=== PATIENT | male | born 1990 | race Caucasian/White ===

== ENCOUNTER 2018-08-04 11:26 | Emergency (ER) | payer SELFPAY ==
[2018-08-04] MEDS ORDERED: IBUPROFEN 200 MG TAB PO ONE (14:07)
--- NOTE | 2018-08-04 14:15 | ER ---
Nurse's Notes [facility] Name: Jesus Stuart Age: 27 yrs Sex: Male : 1990 Arrival Date: 08/04/2018 Time: 11:45 Bed 11 Private MD: None, None Diagnosis: Pain in right thigh Presentation: 08/04 12:18 Presenting complaint: Patient states: " I woke up this morning w/ sharp pain in my (R) ph groin. It seems worse when I cough.". Transition of care: patient was not received from another setting of care. Onset of symptoms was August 04, 2018. Risk Assessment: Do you want to hurt yourself or someone else? Patient reports no desire to harm self or others. Initial Sepsis Screen: Does the patient meet any 2 criteria? No. Patient's initial sepsis screen is negative. Does the patient have a suspected source of infection? No. Patient's initial sepsis screen is negative. Care prior to arrival: None. 12:18 Method Of Arrival: Ambulatory ph 12:18 Acuity: ROXANA 3 ph Historical: - Allergies: 12:20 Zofran; ph 12:20 Sulfa (Sulfonamide Antibiotics); ph - PMHx: 12:20 ASD; ph - PSHx: 12:20 Cholecystectomy; Appendectomy; Tonsillectomy; ph - Immunization history:: Adult Immunizations unknown. - Social history:: Smoking status: Patient uses tobacco products, vapes. - Family history:: not pertinent. - Ebola Screening: : Patient negative for fever greater than or equal to 101.5 degrees Fahrenheit, and additional compatible Ebola Virus Disease symptoms Patient denies exposure to infectious person Patient denies travel to an Ebola-affected area in the 21 days before illness onset No symptoms or risks identified at this time. Screenin:49 Abuse screen: Denies threats or abuse. Denies injuries from another. Nutritional iw screening: No deficits noted. Tuberculosis screening: No symptoms or risk factors identified. Fall Risk None identified. Assessment: 13:48 General: Appears in no apparent distress. Behavior is calm, cooperative. Pain: iw Complains of pain in right femoral area. 13:49 Neuro: Level of Consciousness is awake, alert, obeys commands, Oriented to person, iw place, time, situation. GI: Reports. : Reports pain in right groin Denies burning with urination. Derm: Skin is intact, is healthy with good turgor. Musculoskeletal: Range of motion: intact in all extremities. Vital Signs: 12:19 BP 146 / 92; Pulse 84; Resp 18; Temp 98.0; Pulse Ox 98% on R/A; Weight 129.27 kg; ph Height 6 ft. 2 in. (187.96 cm); Pain 7/10; 12:19 Body Mass Index 36.59 (129.27 kg, 187.96 cm) ph ED Course: 11:45 Patient arrived in ED. sb2 11:45 None, None is Private Physician. sb2 12:19 Triage completed. ph 12:21 Arm band placed on Patient placed in waiting room, Patient notified of wait time. ph 13:36 Milton Last MD is Attending Physician. jann 13:48 Geno Le, RN is Primary Nurse. iw 14:00 Patient has correct armband on for positive identification. iw 14:15 No provider procedures requiring assistance completed. Patient did not have IV access iw during this emergency room visit. Administered Medications: 14:04 Drug: Motrin 600 mg Route: PO; iw 14:15 Follow up: Response: No adverse reaction iw Outcome: 14:14 Discharge ordered by . [facility] 14:15 Discharged to iw 14:18 Condition: good iw 14:18 Discharge instructions given to patient, Instructed on discharge instructions, follow up and referral plans. medication usage, Demonstrated understanding of instructions, follow-up care, medications, Prescriptions given X 2. 14:18 Patient left the ED. iw Signatures: Milton Last MD MD cha Williams, Irene, RN RN Cande Luo RN RN Eliane Montgomery sb2
--- NOTE | 2018-08-04 14:15 | EDPHYS ---
Physician Documentation [facility] Name: Jesus Stuart Age: 27 yrs Sex: Male : 1990 Arrival Date: 08/04/2018 Time: 11:45 Bed 11 Private MD: None, None ED Physician Milton Last HPI: 08/04 14:10 This 27 yrs old Male presents to ER via Ambulatory with complaints of Groin jann Pain. 14:10 The patient presents with decreased range of motion, pain. The complaints affect the jann right inner thigh. Context: The problem was sustained at an unknown site. Onset: The symptoms/episode began/occurred 3 day(s) ago. Modifying factors: The symptoms are alleviated by remaining still, the symptoms are aggravated by movement. Associated signs and symptoms: The patient has no apparent associated signs or symptoms. Severity of symptoms: At their worst the symptoms were mild, moderate, in the emergency department the symptoms have improved, mildly. The patient has not experienced similar symptoms in the past. Historical: - Allergies: 12:20 Zofran; ph 12:20 Sulfa (Sulfonamide Antibiotics); ph - PMHx: 12:20 ASD; ph - PSHx: 12:20 Cholecystectomy; Appendectomy; Tonsillectomy; ph - Immunization history:: Adult Immunizations unknown. - Social history:: Smoking status: Patient uses tobacco products, vapes. - Family history:: not pertinent. - Ebola Screening: : Patient negative for fever greater than or equal to 101.5 degrees Fahrenheit, and additional compatible Ebola Virus Disease symptoms Patient denies exposure to infectious person Patient denies travel to an Ebola-affected area in the 21 days before illness onset No symptoms or risks identified at this time. ROS: 14:10 Constitutional: Negative for fever, chills, and weight loss, Eyes: Negative for injury, jann pain, redness, and discharge, ENT: Negative for injury, pain, and discharge, Neck: Negative for injury, pain, and swelling, Cardiovascular: Negative for chest pain, palpitations, and edema, Respiratory: Negative for shortness of breath, cough, wheezing, and pleuritic chest pain, Abdomen/GI: Negative for abdominal pain, nausea, vomiting, diarrhea, and constipation, Back: Negative for injury and pain, : Negative for injury, bleeding, discharge, and swelling, Skin: Negative for injury, rash, and discoloration, Neuro: Negative for headache, weakness, numbness, tingling, and seizure, Psych: Negative for depression, anxiety, suicide ideation, homicidal ideation, and hallucinations, Allergy/Immunology: Negative for hives, rash, and allergies, Endocrine: Negative for neck swelling, polydipsia, polyuria, polyphagia, and marked weight changes, Hematologic/Lymphatic: Negative for swollen nodes, abnormal bleeding, and unusual bruising. 14:10 MS/extremity: Positive for pain, tenderness, of the right femoral area. Exam: 14:10 Constitutional: This is a well developed, well nourished patient who is awake, alert, jann and in no acute distress. Head/Face: Normocephalic, atraumatic. Eyes: Pupils equal round and reactive to light, extra-ocular motions intact. Lids and lashes normal. Conjunctiva and sclera are non-icteric and not injected. Cornea within normal limits. Periorbital areas with no swelling, redness, or edema. ENT: Nares patent. No nasal discharge, no septal abnormalities noted. Tympanic membranes are normal and external auditory canals are clear. Oropharynx with no redness, swelling, or masses, exudates, or evidence of obstruction, uvula midline. Mucous membranes moist. Neck: Trachea midline, no thyromegaly or masses palpated, and no cervical lymphadenopathy. Supple, full range of motion without nuchal rigidity, or vertebral point tenderness. No Meningismus. Chest/axilla: Normal chest wall appearance and motion. Nontender with no deformity. No lesions are appreciated. Cardiovascular: Regular rate and rhythm with a normal S1 and S2. No gallops, murmurs, or rubs. Normal PMI, no JVD. No pulse deficits. Respiratory: Lungs have equal breath sounds bilaterally, clear to auscultation and percussion. No rales, rhonchi or wheezes noted. No increased work of breathing, no retractions or nasal flaring. Abdomen/GI: Soft, non-tender, with normal bowel sounds. No distension or tympany. No guarding or rebound. No evidence of tenderness throughout. Back: No spinal tenderness. No costovertebral tenderness. Full range of motion. Skin: Warm, dry with normal turgor. Normal color with no rashes, no lesions, and no evidence of cellulitis. Neuro: Awake and alert, GCS 15, oriented to person, place, time, and situation. Cranial nerves II-XII grossly intact. Motor strength 5/5 in all extremities. Sensory grossly intact. Cerebellar exam normal. Normal gait. Psych: Awake, alert, with orientation to person, place and time. Behavior, mood, and affect are within normal limits. 14:10 Musculoskeletal/extremity: Extremities: grossly normal except: noted in the right femoral area: decreased ROM, pain, ROM: full active range of motion, full passive range of motion, Circulation is intact in all extremities. Sensation intact. Compartment Syndrome exam of affected extremity: is normal. Weight bearing: able to fully bear weight, without difficulty, DVT Exam: no swelling, no tenderness, negative Homans' sign noted on exam, no appreciated bluish discoloration, no erythema, pain. Vital Signs: 12:19 BP 146 / 92; Pulse 84; Resp 18; Temp 98.0; Pulse Ox 98% on R/A; Weight 129.27 kg; ph Height 6 ft. 2 in. (187.96 cm); Pain 7/10; 12:19 Body Mass Index 36.59 (129.27 kg, 187.96 cm) ph MDM: 13:37 Patient medically screened. [facility] 14:15 Data reviewed: vital signs, nurses notes, lab test result(s). [facility] 08/04 14:08 Order name: Urine Dipstick--Ancillary (enter results) 08/04 14:00 Order name: Urine Dipstick-Ancillary (obtain specimen); Complete Time: 14:01 [facility] Administered Medications: 14:04 Drug: Motrin 600 mg Route: PO; 14:15 Follow up: Response: No adverse reaction Disposition: 08/04/18 14:14 Discharged to Home. Impression: Pain in right thigh. - Condition is Stable. - Discharge Instructions: Musculoskeletal Pain, Pain Without a Known Cause. - Prescriptions for Ibuprofen 600 mg Oral Tablet - take 1 tablet by ORAL route every 6 hours As needed take with food; 20 tablet. Tylenol- Codeine #3 300-30 mg Oral Tablet - take 2 tablet by ORAL route every 6 hours As needed; 30 tablet. - Medication Reconciliation Form, Thank You Letter, Antibiotic Education, Prescription Opioid Use form. - Follow up: Private Physician; When: 2 - 3 days; Reason: Recheck today's complaints, Continuance of care, Re-evaluation by your physician. - Problem is new. - Symptoms have improved. Signatures: Dispatcher [employer] EDMilton Chisholm MD MD cha Williams, Irene, RN RN iw Cande Luo RN RN ph Corrections: (The following items were deleted from the chart) 14:18 14:14 08/04/2018 14:14 Discharged to Home. Impression: Pain in right thigh. Condition iw is Stable. Forms are Medication Reconciliation Form, Thank You Letter, Antibiotic Education, Prescription Opioid Use. Follow up: Private Physician; When: 2 - 3 days; Reason: Recheck today's complaints, Continuance of care, Re-evaluation by your physician. Problem is new. Symptoms have improved. jann
[2018-08-04 14:54] VITALS: BP 146/92; TEMP 98; O2SAT 98
[2018-08-04 17:29] LABS: Urine Blood NEGATIVE (NEG); Urine Glucose NEGATIVE (NEG); Urine Protein NEGATIVE (NEG); Urine pH 6.5 (5.0-7.0)
== END 2018-08-04 14:18 | disposition home or self-care (01) ==
LOC: ER 11:26
DX: M79.651 Pain in right thigh (principal); Z88.2 Allergy status to sulfonamides; Z88.8 Allergy status to other drugs, medicaments and biological substances
CPT/HCPCS: 81003; 99283

== ENCOUNTER 2021-03-12 03:05 | Emergency (ER) | payer SELFPAY ==
--- NOTE | 2021-03-12 03:50 | EDPHYS ---
Physician Documentation [facility] Name: Jesus Stuart Age: 30 yrs Sex: Male : 1990 Arrival Date: 03/12/2021 Time: 03:06 Bed 5 Private MD: ED Physician Yenifer Cramer HPI: 03/12 03:47 This 30 yrs old Male presents to ER via Ambulatory with complaints of Tooth ma2 Pain. 03:47 Onset: The symptoms/episode began/occurred suddenly, 2 day(s) ago. Associated signs and ma2 symptoms: Pertinent negatives: fever, nausea, redness in area. Severity of symptoms: At their worst the symptoms were moderate, in the emergency department the symptoms are unchanged. The patient has experienced similar episodes in the past. Historical: - Allergies: 03:29 Sulfa (Sulfonamide Antibiotics); bb 03:29 Zofran; bb - Home Meds: 03:29 None [Active]; bb - PMHx: 03:29 ASD; diverticulosis; bb - PSHx: 03:29 Cholecystectomy; Appendectomy; Tonsillectomy; bb - Immunization history:: Adult Immunizations up to date. - Social history:: Smoking status: Patient denies any tobacco usage or history of. Patient uses alcohol, occasionally. Patient/guardian denies using street drugs, Patient uses Patient/guardian denies using alcohol, The patient lives with spouse, . - Family history:: not pertinent. ROS: 03:47 Constitutional: Negative for fever, chills, and weight loss. ma2 03:47 All other systems are negative. Exam: 03:47 Constitutional: This is a well developed, well nourished patient who is awake, alert, ma2 and in no acute distress. Head/Face: Normocephalic, atraumatic. Eyes: Pupils equal round and reactive to light, extra-ocular motions intact. Lids and lashes normal. Conjunctiva and sclera are non-icteric and not injected. Cornea within normal limits. Periorbital areas with no swelling, redness, or edema. ENT: dental infection.. Nares patent. No nasal discharge, no septal abnormalities noted. Tympanic membranes are normal and external auditory canals are clear. Oropharynx with no redness, swelling, or masses, exudates, or evidence of obstruction, uvula midline. Mucous membranes moist. Neck: Trachea midline, no thyromegaly or masses palpated, and no cervical lymphadenopathy. Supple, full range of motion without nuchal rigidity, or vertebral point tenderness. No Meningismus. Chest/axilla: Normal chest wall appearance and motion. Nontender with no deformity. No lesions are appreciated. Cardiovascular: Regular rate and rhythm with a normal S1 and S2. No gallops, murmurs, or rubs. Normal PMI, no JVD. No pulse deficits. Respiratory: Lungs have equal breath sounds bilaterally, clear to auscultation and percussion. No rales, rhonchi or wheezes noted. No increased work of breathing, no retractions or nasal flaring. Abdomen/GI: Soft, non-tender, with normal bowel sounds. No distension or tympany. No guarding or rebound. No evidence of tenderness throughout. Vital Signs: 03:27 BP 151 / 87; Pulse 84; Resp 18 S; Temp 98.2(O); Pulse Ox 99% on R/A; Weight 113.4 kg bb (R); Height 6 ft. 2 in. (187.96 cm) (R); Pain 10/10; 03:27 Body Mass Index 32.10 (113.40 kg, 187.96 cm) bb MDM: 03:40 Patient medically screened. [facility] 03:47 Differential diagnosis: dental caries, gingivitis, gingivostomatitis. Data reviewed: [facility] vital signs, nurses notes. Counseling: I had a detailed discussion with the patient and/or guardian regarding: the historical points, exam findings, and any diagnostic results supporting the discharge/admit diagnosis, the presence of at least one elevated blood pressure reading (>120/80) during this emergency department visit, the need for outpatient follow up. Response to treatment: the patient's symptoms have markedly improved after treatment. Administered Medications: 03:59 Drug: TORadol (ketorolac) 60 mg Route: IM; Site: right gluteus; 04:14 Follow up: Response: No adverse reaction; Pain is decreased 03:59 Drug: Augmentin (Amoxicillin-Clavulanate) 875 mg Route: PO; 04:13 Follow up: Response: No adverse reaction Disposition: 03/12/21 03:48 Discharged to Home. Impression: Dental caries. - Condition is Stable. - Discharge Instructions: Dental Pain. - Prescriptions for Augmentin 875- 125 mg Oral Tablet - take 1 tablet by ORAL route every 12 hours for 10 days; 20 tablet. Diclofenac Sodium 75 mg Oral Tablet Sustained Release - take 1 tablet by ORAL route 2 times per day; 30 tablet. - Medication Reconciliation Form, Thank You Letter, Antibiotic Education, Prescription Opioid Use form. - Follow up: Private Physician; When: Tomorrow; Reason: Recheck today's complaints, Continuance of care. Signatures: Khushboo Stafford RN Marianne Driscoll RN RN Yenifer Cramer MD MD ma2 Corrections: (The following items were deleted from the chart) 04:17 03:48 03/12/2021 03:48 Discharged to Home. Impression: Dental caries. Condition is wh Stable. Forms are Medication Reconciliation Form, Thank You Letter, Antibiotic Education, Prescription Opioid Use. Follow up: Private Physician; When: Tomorrow; Reason: Recheck today's complaints, Continuance of care. ma2
--- NOTE | 2021-03-12 03:50 | ER ---
Nurse's Notes [facility] Name: Jesus Stuart Age: 30 yrs Sex: Male : 1990 Arrival Date: 03/12/2021 Time: 03:06 Bed 5 Private MD: Diagnosis: Dental caries Presentation: 03/12 03:27 Chief complaint: Patient states: he has had a toothache for a week has broken wisdom bb teeth in bilateral upper jaws. Coronavirus screen: At this time, the client does not indicate any symptoms associated with coronavirus-19. Ebola Screen: No symptoms or risks identified at this time. Initial Sepsis Screen: Does the patient meet any 2 criteria? No. Patient's initial sepsis screen is negative. Does the patient have a suspected source of infection? No. Patient's initial sepsis screen is negative. Risk Assessment: Do you want to hurt yourself or someone else? Patient reports no desire to harm self or others. Onset of symptoms was March 04, 2021. 03:27 Method Of Arrival: Ambulatory 03:27 Acuity: ROXANA 5 bb Triage Assessment: 03:29 General: Appears in no apparent distress. uncomfortable, Behavior is calm, cooperative. bb Pain: Complains of pain in bilateral upper jaws Pain currently is 10 out of 10 on a pain scale. EENT: Reports pain from broken molars in upper jaw. Neuro: Level of Consciousness is awake, alert, obeys commands, Oriented to person, place, time, situation. Cardiovascular: No deficits noted. Respiratory: Respiratory effort is even, unlabored, Respiratory pattern is regular. GI: No signs and/or symptoms were reported involving the gastrointestinal system. Derm: Skin is pink, warm \T\ dry. Musculoskeletal: Circulation, motion, and sensation intact. Historical: - Allergies: 03:29 Sulfa (Sulfonamide Antibiotics); bb 03:29 Zofran; bb - Home Meds: 03:29 None [Active]; bb - PMHx: 03:29 ASD; diverticulosis; bb - PSHx: 03:29 Cholecystectomy; Appendectomy; Tonsillectomy; bb - Immunization history:: Adult Immunizations up to date. - Social history:: Smoking status: Patient denies any tobacco usage or history of. Patient uses alcohol, occasionally. Patient/guardian denies using street drugs, Patient uses Patient/guardian denies using alcohol, The patient lives with spouse, . - Family history:: not pertinent. Screenin:30 Abuse screen: Denies threats or abuse. Nutritional screening: No deficits noted. Tuberculosis screening: No symptoms or risk factors identified. Fall Risk None identified. Assessment: 03:30 Reassessment: No changes from previously documented assessment. see triage assessment. Vital Signs: 03:27 BP 151 / 87; Pulse 84; Resp 18 S; Temp 98.2(O); Pulse Ox 99% on R/A; Weight 113.4 kg bb (R); Height 6 ft. 2 in. (187.96 cm) (R); Pain 10/10; 03:27 Body Mass Index 32.10 (113.40 kg, 187.96 cm) ED Course: 03:06 Patient arrived in ED. cl3 03:28 Triage completed. 03:28 Marianne Felipe RN is Primary Nurse. 03:29 Arm band placed on Patient placed in an exam room, on a stretcher, on pulse oximetry. 03:30 Patient has correct armband on for positive identification. Bed in low position. Call bb light in reach. Pulse ox on. NIBP on. 03:40 Yenifer Cramer MD is Attending Physician. ma2 04:16 No provider procedures requiring assistance completed. Patient did not have IV access during this emergency room visit. Administered Medications: 03:59 Drug: TORadol (ketorolac) 60 mg Route: IM; Site: right gluteus; 04:14 Follow up: Response: No adverse reaction; Pain is decreased 03:59 Drug: Augmentin (Amoxicillin-Clavulanate) 875 mg Route: PO; 04:13 Follow up: Response: No adverse reaction Outcome: 03:48 Discharge ordered by . ma2 04:17 Discharged to home ambulatory. 04:17 Condition: stable 04:17 Discharge instructions given to patient, Instructed on discharge instructions, follow up and referral plans. medication usage, POC Demonstrated understanding of instructions, follow-up care, medications, POC Prescriptions given X 2. 04:17 Patient left the ED. Signatures: Khushboo Stafford RN RN Marianne Felipe RN RN Alzahri, Mohammad, MD MD ma2 Harley, Charde cl3
[2021-03-12] MEDS ORDERED: AMOX/K CLAV 875 MG TAB ONE (04:13)
[2021-03-12] MEDS ORDERED: KETOROLAC 30 MG/ML INJ ONE (04:14)
[2021-03-12 04:49] VITALS: BP 151/87; TEMP 98.2; O2SAT 99
== END 2021-03-12 04:17 | disposition home or self-care (01) ==
LOC: ER 03:05
DX: K02.9 Dental caries, unspecified (principal); Z88.2 Allergy status to sulfonamides; Z88.8 Allergy status to other drugs, medicaments and biological substances
CPT/HCPCS: 96372; 99283

== ENCOUNTER 2021-09-23 18:49 | Emergency (ER) | payer SELFPAY ==
[2021-09-23] MEDS ORDERED: NA CHLORIDE 0.9% 1,000 ML ONE (19:43)
[2021-09-23 20:08] LABS: Absolute Lymphocytes (CBC) 2.4 K/uL (0.7-4.9); Basophils % 1.4 % (0-1.3); Hematocrit 44.1 % (39.6-49.0); Lymphocytes % 34.4 % (15.3-44.8); MPV 7.9 fL (7.6-11.3); RBC Red Blood Cell Count 5.24 M/uL (4.33-5.43)
[2021-09-23 20:11] LABS: Protime INR 1.01
--- NOTE | 2021-09-23 20:19 | RAD REPORT ---
EXAM DESCRIPTION: CT - Head Brain Wo Cont - 09/23/2021 8:11 pm CLINICAL HISTORY: AMS Headache, drowsiness COMPARISON: No comparisons TECHNIQUE: All CT scans are performed using dose optimization technique as appropriate and may inclu de automated exposure control or mA/KV adjustment according to patient size. FINDINGS: No intracranial hemorrhage, hydrocephalus or extra-axial fluid collection.No areas of brai n edema or evidence of midline shift. The paranasal sinuses and mastoids are clear. The calvarium is intact. IMPRESSION: No acute intracranial abnormality.
[2021-09-23 20:22] LABS: ALT/SGPT 39 U/L (12-78); AST/SGOT 23 U/L (15-37); Albumin 3.8 g/dL (3.4-5.0); Alkaline Phosphatase 66 U/L (45-117); BUN Blood Urea Nitrogen 22 mg/dL (7-18); Bicarbonate 33 mmol/L (21-32); Bilirubin Direct < 0.1 mg/dL (0-0.2); Bilirubin Total 0.5 mg/dL (0.2-1.0); Creatine Phosphokinase 372 U/L (39-308); Glucose Level 100 mg/dL (74-106); Potassium 3.9 mmol/L (3.5-5.1); Protein, Total 8.2 g/dL (6.4-8.2); Sodium Level 142 mmol/L (136-145)
[2021-09-23 20:39] LABS: Thyroid Stimulating Hormone 0.336 uIU/mL (0.360-3.740)
[2021-09-23] MEDS ORDERED: LORazepam 2 MG/ML VIAL ONE (20:52)
[2021-09-23 21:14] LABS: Urine Blood Trace-intact (Negative); Urine Glucose Negative (Negative); Urine Protein Negative (Negative); Urine Specific Gravity >=1.030 (1.005-1.030)
[2021-09-23 21:20] LABS: SARS-COV-2 RT PCR NEGATIVE (NEGATIVE)
[2021-09-23 21:32] LABS: Barbiturates NEGATIVE (NEGATIVE); Benzodiazepines NEGATIVE (NEGATIVE); Cocaine NEGATIVE (NEGATIVE); METHAMPHETAM POSITIVE (NEGATIVE); Methadone NEGATIVE (NEGATIVE); Opiates NEGATIVE (NEGATIVE); Phencyclidine NEGATIVE (NEGATIVE); THC Cannibis NEGATIVE (NEGATIVE)
--- NOTE | 2021-09-23 22:51 | ER ---
Nurse's Notes [facility] Name: Jesus Stuart Age: 31 yrs Sex: Male : 1990 Arrival Date: 09/23/2021 Time: 18:50 Bed 7 Private MD: Diagnosis: Psychosis;Methamphetamine abuse Presentation: 09/23 19:02 Chief complaint: Patient states: Mom believes he is having a psychotic break since ll1 . He tore apart her car and house looking for listening devices. Hearing voices, felt like someone was out to get him. No history of this per mom. Had some N/V with dehydration on . Denies SI and HI. Coronavirus screen: Vaccine status: Patient reports being unvaccinated. Client denies travel out of the [place] in the last 14 days. At this time, the client does not indicate any symptoms associated with coronavirus-19. Ebola Screen: Patient denies travel to an Ebola-affected area in the 21 days before illness onset. Initial Sepsis Screen: Does the patient meet any 2 criteria? No. Patient's initial sepsis screen is negative. Does the patient have a suspected source of infection? No. Patient's initial sepsis screen is negative. Risk Assessment: Do you want to hurt yourself or someone else? Patient reports no desire to harm self or others. Onset of symptoms was September 20, 2021. 19:02 Method Of Arrival: Ambulatory ll1 19:02 Acuity: ROXANA 2 ll1 Historical: - Allergies: 19:01 Sulfa (Sulfonamide Antibiotics); ll1 19:01 Zofran; ll1 19:01 Tylenol; ll1 19:01 Erythromycin; ll1 - PMHx: 19:01 ASD; diverticulosis; 1 - PSHx: 19:01 Appendectomy; ll1 - Immunization history:: Client reports having NOT received the Covid vaccine. - Social history:: Smoking status: Patient denies any tobacco usage or history of. Screenin:05 Abuse screen: Denies threats or abuse. Nutritional screening: No deficits noted. ll1 Tuberculosis screening: No symptoms or risk factors identified. 20:40 Fall Risk None identified. lp1 Assessment: 19:30 General: Appears in no apparent distress. Behavior is cooperative. Pain: Denies pain. lp1 Neuro: Level of Consciousness is awake, alert, obeys commands, Oriented to person, place, time, situation, Gait is steady, Speech is normal, Pupils are PERRLA, Denies blurred vision headache. Cardiovascular: Patient's skin is warm and dry. Respiratory: Respiratory effort is even, unlabored. GI: No signs and/or symptoms were reported involving the gastrointestinal system. : No signs and/or symptoms were reported regarding the genitourinary system. EENT: No signs and/or symptoms were reported regarding the EENT system. Derm: Skin is intact, Skin is dry, Skin is normal. Musculoskeletal: No deficits noted. 20:20 Reassessment: Verbal order for Ativan 1mg IV now; Provider notified of patient feeling lp1 overwhelmed with hearing voices, reports it is just mother's voice that he hears. 21:31 Reassessment: patient reports feeling like Ativan has helped minimize the voices, lp1 reports "Is there anyway I can get a little bit more to see if it helps?"; Provider notified. General: Behavior is calm, cooperative. Neuro: Level of Consciousness is awake, alert, obeys commands. 21:54 Reassessment: Patient is alert, oriented x 3, equal unlabored respirations, skin lp1 warm/dry/pink. Patient given sandwich and water at this time, mother at bedside. 22:54 Reassessment: Dr. Spann at bedside to discuss plan of care and resources given for lp1 mental health follow up; mother at bedside. Psych: 19:30 [place] Suicide Severity Screening: In the past month, have you wished you were lp1 or wished you could go to sleep and not wake up? Patient responds "No." "In the past month, have you actually had any thoughts of killing yourself?" Patient responds "no." "In your lifetime, have you ever done anything, started to do anything, or prepared to do anything to end your life?" Patient responds "no.". Subjective: Patient's mood is appropriate Delusions are denied, Hallucinations are auditory, Reports hearing mother's voice when she is not around, nonspecific statements. Objective: Patient is cooperative, using poor eye contact, Speech is normal, Affect is appropriate. Interventions: Searched person for dangerous items. Mother remains at bedside for patient comfort, reports calming to have mother at bedside. Safety Checks: patient searched Visitors are present. Mother at bedside. Patient uses marijuana weekly Patient uses methamphetamines Last use was 1 months ago. 22:55 Commitment: Patient agrees to follow up as outpatient. lp1 Vital Signs: 19:02 BP 137 / 80; Pulse 84; Resp 18; Temp 98.2; Pulse Ox 98% ; Weight 113.4 kg; Height 6 ft. ll1 2 in. (187.96 cm); 20:31 BP 118 / 60; Pulse 81; Resp 16; Pulse Ox 98% on R/A; lp1 21:54 BP 133 / 81; Pulse 86; Resp 18; Pulse Ox 100% on R/A; Pain 0/10; lp1 22:54 BP 103 / 63; Pulse 84; Resp 16; Pulse Ox 100% on R/A; lp1 19:02 Body Mass Index 32.10 (113.40 kg, 187.96 cm) ll1 ED Course: 18:50 Patient arrived in ED. ds1 19:01 Tin Spann MD is Attending Physician. 7 19:01 Arm band placed on Patient placed in an exam room, on a stretcher. ll1 19:05 Triage completed. 1 19:05 Patient has correct armband on for positive identification. Bed in low position. Call [facility] light in reach. Side rails up X 1. Pulse ox on. NIBP on. 19:18 Alexandra Bolanos, KEVIN is Primary Nurse. lp1 19:45 Missed attempt(s): 20 gauge in right antecubital area. Inserted saline lock: 20 gauge lp1 in left antecubital area, using aseptic technique. Blood collected. 20:11 CT Head Brain wo Cont In Process Unspecified. EDMS 22:49 John Sanchez MD is Referral Physician. [facility] 22:55 No provider procedures requiring assistance completed. IV discontinued, No lp1 redness/swelling at site. Pressure dressing applied. Administered Medications: 19:49 Drug: NS 0.9% 1000 ml Route: IV; Rate: 1000 ml; Site: left antecubital; lp1 21:00 Follow up: IV Status: Completed infusion; IV Intake: 1000ml lp1 20:31 Drug: Ativan (LORazepam) 1 mg {Note: Verbal order per Dr. Spann.} Route: IVP; Site: lp1 left antecubital; 21:20 Follow up: Response: No adverse reaction; No change in condition lp1 Intake: 21:00 IV: 1000ml; Total: 1000ml. lp1 Outcome: 22:50 Discharge ordered by . satinder 22:55 Discharged to home ambulatory, with family. lp1 22:55 Condition: good 22:55 Discharge instructions given to patient, family, Instructed on discharge instructions, follow up and referral plans. Demonstrated understanding of instructions, follow-up care. 22:56 Patient left the ED. lp1 Signatures: Dispatcher [employer] EDWA SwansonEvie sauer ds1 Alexandra Bolanos RN RN lp1 Melanie Souza RN RN 1 Tin Spann MD MD mh7
--- NOTE | 2021-09-23 22:51 | EDPHYS ---
Physician Documentation [facility] Name: Jesus Stuart Age: 31 yrs Sex: Male : 1990 Arrival Date: 09/23/2021 Time: 18:50 Bed 7 Private MD: ED Physician Tin Spann HPI: 09/23 19:18 This 31 yrs old Male presents to ER via Ambulatory with complaints of Psych mh7 Problem. 19:18 The patient presents to the emergency department with psychosis, has experienced mh7 auditory hallucinations, Nonspecific commands. Onset: The symptoms/episode began/occurred 3 day(s) ago. Past psychiatric history: Prior diagnosis: no previous psychiatric diagnosis known, Psychiatric medications include: none, Primary psychiatric physician: the patient does not have a primary psychiatric physician, the patient has not had a prior suicide gesture, the patient does not have a previous inpatient psychiatric history, the patient's last psychiatric treatment was none. Associated signs and symptoms: Pertinent positives; hallucinations, nausea, vomiting, Pertinent negatives: abdominal pain, anxiety, chest pain, chills, delusions, depression, fever, headache, homicidal ideation, night sweats, palpitations, shortness of breath, substance abuse, suicide ideation, tremor. Severity of symptoms: At their worst the symptoms were moderate 2 day(s) ago, in the emergency department the symptoms are unchanged. Historical: - Allergies: 19:01 Sulfa (Sulfonamide Antibiotics); ll1 19:01 Zofran; ll1 19:01 Tylenol; ll1 19:01 Erythromycin; ll1 - PMHx: 19:01 ASD; diverticulosis; ll1 - PSHx: 19:01 Appendectomy; ll1 - Immunization history:: Client reports having NOT received the Covid vaccine. - Social history:: Smoking status: Patient denies any tobacco usage or history of. ROS: 19:18 Constitutional: Negative for fever, chills, and weight loss, Eyes: Negative for injury, mh7 pain, redness, and discharge, ENT: Negative for injury, pain, and discharge, Neck: Negative for injury, pain, and swelling, Cardiovascular: Negative for chest pain, palpitations, and edema, Respiratory: Negative for shortness of breath, cough, wheezing, and pleuritic chest pain. 19:18 Back: Negative for injury and pain, : Negative for injury, bleeding, discharge, and swelling, MS/Extremity: Negative for injury and deformity, Skin: Negative for injury, rash, and discoloration, Neuro: Negative for headache, weakness, numbness, tingling, and seizure, Allergy/Immunology: Negative for hives, rash, and allergies, Endocrine: Negative for neck swelling, polydipsia, polyuria, polyphagia, and marked weight changes, Hematologic/Lymphatic: Negative for swollen nodes, abnormal bleeding, and unusual bruising. 19:18 Abdomen/GI: Negative for abdominal pain, diarrhea, constipation, abdominal cramps, abdominal distension, anorexia, dysphagia, hematemesis, black/tarry stool, rectal pain, rectal bleeding, bowel incontinence, flatulence. 19:18 Psych: Positive for auditory hallucinations, insomnia, Negative for anxiety, depression, drug dependence, alcohol dependence, homicidal ideation, suicide gesture, suicidal ideation. Exam: 19:18 Constitutional: This is a well developed, well nourished patient who is awake, alert, mh7 and in no acute distress. Head/Face: Normocephalic, atraumatic. Eyes: Pupils equal round and reactive to light, extra-ocular motions intact. Lids and lashes normal. Conjunctiva and sclera are non-icteric and not injected. Cornea within normal limits. Periorbital areas with no swelling, redness, or edema. Neck: Trachea midline, no thyromegaly or masses palpated, and no cervical lymphadenopathy. Supple, full range of motion without nuchal rigidity, or vertebral point tenderness. No Meningismus. Chest/axilla: Normal chest wall appearance and motion. Nontender with no deformity. No lesions are appreciated. Cardiovascular: Regular rate and rhythm with a normal S1 and S2. No gallops, murmurs, or rubs. Normal PMI, no JVD. No pulse deficits. Respiratory: Lungs have equal breath sounds bilaterally, clear to auscultation and percussion. No rales, rhonchi or wheezes noted. No increased work of breathing, no retractions or nasal flaring. Abdomen/GI: Soft, non-tender, with normal bowel sounds. No distension or tympany. No guarding or rebound. No evidence of tenderness throughout. Back: No spinal tenderness. No costovertebral tenderness. Full range of motion. Skin: Warm, dry with normal turgor. Normal color with no rashes, no lesions, and no evidence of cellulitis. MS/ Extremity: Pulses equal, no cyanosis. Neurovascular intact. Full, normal range of motion. Neuro: Awake and alert, GCS 15, oriented to person, place, time, and situation. Cranial nerves II-XII grossly intact. Motor strength 5/5 in all extremities. Sensory grossly intact. Cerebellar exam normal. Normal gait. 19:18 Psych: Behavior/mood is cooperative, Affect is calm, Oriented to person, place, time, mh7 Patient has no thoughts/intents to harm self or others. Judgement / Insight is normal. Memory is normal. Delusions/hallucinations are present and described as Hears voices that are nonspecific but do not tell him to harm himself or others. Vital Signs: 19:02 BP 137 / 80; Pulse 84; Resp 18; Temp 98.2; Pulse Ox 98% ; Weight 113.4 kg; Height 6 ft. ll1 2 in. (187.96 cm); 20:31 BP 118 / 60; Pulse 81; Resp 16; Pulse Ox 98% on R/A; lp1 21:54 BP 133 / 81; Pulse 86; Resp 18; Pulse Ox 100% on R/A; Pain 0/10; lp1 22:54 BP 103 / 63; Pulse 84; Resp 16; Pulse Ox 100% on R/A; lp1 19:02 Body Mass Index 32.10 (113.40 kg, 187.96 cm) ll1 MDM: 22:46 Differential diagnosis: drug withdrawal. acute psychotic break, depression, psychosis mh7 secondary to non-compliance, Substance abuse. Data reviewed: vital signs, nurses notes, lab test result(s), CBC, drug level(s), acetaminophen, alcohol, salicylate, electrolytes, urinalysis, urine drug screen. Data interpreted: Pulse oximetry: on room air is 100 %. Interpretation: normal. Counseling: I had a detailed discussion with the patient and/or guardian regarding: the historical points, exam findings, and any diagnostic results supporting the discharge/admit diagnosis, lab results, radiology results, the need for outpatient follow up, a psychiatrist, to return to the emergency department if symptoms worsen or persist or if there are any questions or concerns that arise at home. Response to treatment: the patient's symptoms have mildly improved after treatment. ED course: No acute distress, vital signs stable, no focal neurological deficits. He is appropriate with answering and asking questions. No suicidal or homicidal ideation. [facility] psychiatric services were contacted and will have patient follow-up as an outpatient. Discussed all test results findings with the patient and his mother. He will be provided with information for psychiatric services to follow-up. Explained that he may return to the ED if worsening of symptoms or other urgent concerns.. 22:50 Patient medically screened. [facility] 09/23 19:14 Order name: Acetaminophen [facility] 09/23 19:14 Order name: Basic Metabolic Panel [facility] 09/23 19:14 Order name: CBC with Diff; Complete Time: 20:30 [facility] 09/23 19:14 Order name: ETOH Level; Complete Time: 20:30 [facility] 09/23 19:14 Order name: Hepatic Function; Complete Time: 20:30 [facility] 09/23 19:14 Order name: PT-INR; Complete Time: 20:43 [facility] 09/23 19:14 Order name: Ptt, Activated; Complete Time: 20:43 [facility] 09/23 19:14 Order name: Salicylate; Complete Time: 21:08 [facility] 09/23 19:14 Order name: Urine Drug Screen; Complete Time: 21:51 [facility] 09/23 19:14 Order name: CPK; Complete Time: 20:30 [facility] 09/23 19:15 Order name: Acetaminophen Level; Complete Time: 20:30 [facility] 09/23 19:15 Order name: Basic Metabolic Panel; Complete Time: 20:30 [facility] 09/23 19:16 Order name: Lipase; Complete Time: 20:43 [facility] 09/23 19:14 Order name: EKG; Complete Time: 19:15 [facility] 09/23 19:14 Order name: EKG - Nurse/Tech; Complete Time: 19:37 [facility] 09/23 19:14 Order name: IV Saline Lock; Complete Time: 19:49 [facility] 09/23 19:14 Order name: Labs collected and sent; Complete Time: 19:49 [facility] 09/23 19:14 Order name: Suicide Screening (Cook); Complete Time: 21:20 [facility] 09/23 19:14 Order name: Urine Dipstick-Ancillary (obtain specimen); Complete Time: 21:20 [facility] 09/23 19:17 Order name: CT Head Brain wo Cont; Complete Time: 20:22 7 09/23 19:17 Order name: TSH; Complete Time: 20:43 [facility] 09/23 20:26 Order name: COVID-19/FLU A+B/RSV; Complete Time: 21:51 EDMS 09/23 21:14 Order name: Urine Dipstick-Ancillary; Complete Time: 21:51 EDMS Administered Medications: 19:49 Drug: NS 0.9% 1000 ml Route: IV; Rate: 1000 ml; Site: left antecubital; 1 21:00 Follow up: IV Status: Completed infusion; IV Intake: 1000ml 1 20:31 Drug: Ativan (LORazepam) 1 mg {Note: Verbal order per Dr. Spann.} Route: IVP; Site: lp1 left antecubital; 21:20 Follow up: Response: No adverse reaction; No change in condition [facility] Disposition Summary: 09/23/21 22:50 Discharge Ordered Location: Home [facility] Problem: new [facility] Symptoms: have improved [facility] Condition: Stable [facility] Diagnosis - Psychosis [facility] - Methamphetamine abuse [facility] Followup: [facility] - With: Private Physician - When: 1 - 2 days - Reason: Worsening of condition, Recheck today's complaints, Continuance of care, Re-evaluation by your physician Followup: [facility] - With: John Sanchez MD - When: 1 - 2 days - Reason: Worsening of condition, Recheck today's complaints Discharge Instructions: - Discharge Summary Sheet [facility] - Methamphetamines Use Disorder [facility] - Psychosis [facility] Forms: - Medication Reconciliation Form [facility] - Thank You Letter [facility] - Antibiotic Education [facility] - Prescription Opioid Use [facility] Signatures: Dispatcher [employer] EDMS Alexandra Bolanos RN RN lp1 Melanie Souza RN RN ll1 Tin Spann MD MD 7 Corrections: (The following items were deleted from the chart) 20:11 19:17 CORONAVIRUS+MR.LAB.BRZ ordered. EDMS EDMS 20:26 20:11 SARS-COV-2 RT PCR ordered. EDMS EDMS
[2021-09-23 23:09] VITALS: TEMP 98.2
[2021-09-23 23:12] VITALS: O2SAT 100
[2021-09-23 23:13] VITALS: BP 103/63
== END 2021-09-23 22:56 | disposition home or self-care (01) ==
LOC: ER 18:49
DX: F15.159 Other stimulant abuse with stimulant-induced psychotic disorder, unspecified (principal); Z20.822 Contact with and (suspected) exposure to COVID-19
CPT/HCPCS: 0241U; 36415; 70450; 80048; 80076; 80307; 80320; 80329; 81003; 82550; 83690; 84443; 85025; 85610; 85730; 93005; 96361; 96374; 99285; J7030